=== PATIENT | female | born 1975 | race Hispanic/Latino ===

== ENCOUNTER 2017-12-07 21:16 | Emergency (ER) | payer OTHER ==
[~2017-12-07] VITALS: Ht 160 cm; Wt 122.9 kg
[2017-12-07] MEDS ORDERED: KETOROLAC TROMETHAMINE 60 MG/2 ML VIAL IM ONE (22:00)
[2017-12-07] MEDS ORDERED: CLINDAMYCIN HC150 MG PO (22:00)
[2017-12-07] MEDS ORDERED: ONDANSETRON HCL 4 MG ORAL DISINTEGRATING TAB PO ONE (22:00)
[2017-12-07] MEDS ORDERED: BELLADONNA ALK/PHENOBARBITAL 5 ML UDC PO ONE (22:00)
[2017-12-07] MEDS ORDERED: METFORMIN HCL500 MG PO (22:00)
[2017-12-07] MEDS ORDERED: PREVACID15 M1 PO (22:00)
[2017-12-07] MEDS ORDERED: LIDOCAINE VISC 2% SOLN 15 ML UDC PO ONE (22:00)
[2017-12-07] MEDS ORDERED: CARVEDILOL12.5 MG PO (22:00)
[2017-12-07] MEDS ORDERED: MAGNESIUM/ALUMINUM/SIMETHICONE 30 ML UDC PO ONE ×2 (22:00→23:45)
[2017-12-07] MEDS ORDERED: INSULIN REGULAR, HUMAN 100 UNIT/1 ML 3ML VIAL IV ONE (23:00)
[2017-12-07] MEDS ORDERED: INSULIN REGULAR, HUMAN 100 UNIT/1 ML 3ML VIAL SQ ONE (23:00)
[2017-12-07] MEDS ORDERED: SODIUM CHLORIDE 0.9% 1000ML 1,000 ML IV SCH (23:00)
[2017-12-07] MEDS ORDERED: DONNATAL E16.2 MG/5 PO (23:43)
[2017-12-07] MEDS ORDERED: DICYCLOMINE HCL 20 MG TAB PO ONE (23:45)
== END 2017-12-08 00:03 | disposition home or self-care (01) ==
LOC: FSED 21:16
DX: R10.13 Epigastric pain (principal); K21.0 Gastro-esophageal reflux disease with esophagitis; K21.9 Gastro-esophageal reflux disease without esophagitis; I10 Essential (primary) hypertension; E11.65 Type 2 diabetes mellitus with hyperglycemia
CPT/HCPCS: 80053; 85025; 99283; J1885